=== PATIENT | female | born 1985 | race African-American/Black ===

== ENCOUNTER 2016-06-06 05:44 | Emergency (ER) | payer OTHER ==
[~2016-06-06] VITALS: Ht 160 cm; Wt 65.5 kg
[2016-06-06] MEDS ORDERED: CELEXA20 MG PO (06:45)
[2016-06-06 07:40] VITALS: BP 122/68
== END 2016-06-06 07:40 | disposition home or self-care (01) ==
LOC: EME 05:44
DX: F32.9 Major depressive disorder, single episode, unspecified (principal); F41.9 Anxiety disorder, unspecified
CPT/HCPCS: 90839; 99281; 99283